=== PATIENT | male | born 1980 | race Caucasian/White ===

== ENCOUNTER 2017-10-16 17:52 | Emergency (ER) | payer BC, MEDICARE, OTHER ==
[~2017-10-16] VITALS: Ht 188 cm; Wt 96.2 kg
[~2017-10-16 17:52] MED LIST: "\\\"BP MED\\\""; "\\\"WATER PILL\\\""; CRUTCH3 USE; HYDACE5 PO; HYDCHL50 PO; IBUP600 PO; METPHE10 PO; MONT10T PO; Micro-K10 MEQ PO; Motrin800 MG PO; NASAL SPRAY; Norco 5-325 Ta1 EACH PO; PROM25 PO; Percocet 10-321 EACH PO
[2017-10-16] MEDS ORDERED: NEBI5 PO (18:04)
[2017-10-16] MEDS ORDERED: MOMENI (18:04)
[2017-10-16 20:33] LABS: BASOPHILS ABSOLUTE AUTO 0.04 K/mm3 (0.00-0.23); BASOPHILS PERCENT AUTO 1 % (0-2); EOSINOPHILS ABSOLUTE AUTO 0.19 K/mm3 (0.00-0.68); EOSINOPHILS PERCENT AUTO 4 % (0-6); Hematocrit 42.4 % (37.0-53.0); Hemoglobin 14.3 g/dL (13.5-17.5); IMMATURE GRAN ABSOLUTE AUTO 0.01 K/mm3 (0.00-0.10); IMMATURE GRAN PERCENT AUTO 0 % (0-1); LYMPHOCYTES ABSOLUTE AUTO 2.43 K/mm3 (0.84-5.20); LYMPHOCYTES PERCENT AUTO 47 % (21-46); MONOCYTES PERCENT AUTO 12 % (4-13); Mean Corpuscular HGB 31.4 pg (26.0-34.0); Mean Corpuscular HGB Conc 33.7 g/dL (31.5-36.5); Mean Corpuscular Volume 93 fL (80-100); Mean Platelet Volume 9.6 fL (9.1-12.4); NEUTROPHILS ABSOLUTE AUTO 1.96 K/mm3 (1.96-9.15); NEUTROPHILS PERCENT AUTO 37 % (41-73); Platelet Count 226 K/mm3 (150-400); RDW Coefficient Variation 11.9 % (11.7-14.2); RDW Standard Deviation 40.7 fL (35.1-46.3); Red Blood Cell Count 4.56 M/mm3 (4.30-5.90); White Blood Cell Count 5.23 K/mm3 (4.00-11.30)
[2017-10-16 20:59] LABS: Alanine Aminotransfer (ALT/SGP 88 U/L (12-78); Albumin/Globulin Ratio 1.1 (0.8-1.8); Alk Phos 90 U/L (50-136); Anion Gap 9 mmol/L (6-16); Aspartate Aminotrans (AST/SGOT 44 U/L (12-37); Blood Urea Nitrogen 18 mg/dL (8-24); Bun/Creatinine Ratio 22.3 (12.0-20.0); CO2, Blood 27 mmol/L (21-32); Calcium, Blood 8.6 mg/dL (8.5-10.1); Chloride, Blood 105 mmol/L (98-108); Creatinine, Blood 0.81 mg/dL (0.60-1.20); Globulin, Blood 3.8 g/dL (2.2-4.0); Glomerular Filtration Rate >60 (60-); Glucose, Blood 85 mg/dL (70-99); Potassium, Blood 3.7 mmol/L (3.5-5.5); Sodium, Blood 141 mmol/L (136-145); Total Protein, Blood 7.8 g/dL (6.4-8.2); Troponin I <0.015 ng/mL (0.000-0.040)
== END 2017-10-16 21:22 | disposition home or self-care (01) ==
LOC: ER 17:52
PROVIDERS: Emergency Medicine
DX: R94.31 Abnormal electrocardiogram [ECG] [EKG] (principal); Z79.899 Other long term (current) drug therapy; J45.909 Unspecified asthma, uncomplicated; I10 Essential (primary) hypertension; F90.9 Attention-deficit hyperactivity disorder, unspecified type
CPT/HCPCS: 36415; 71046; 80053; 84484; 85025; 93005; 93010; 99283

== ENCOUNTER → 2024-05-26 | Outpatient (CLI) | payer BC, OTHER ==
[~2024-05-26] MED LIST changes: +MOMENI; +NEBI5 PO
== END | disposition home or self-care (01) ==
LOC: LAB 17:26 → LAB SHORT 17:26
DX: K21.9 Gastro-esophageal reflux disease without esophagitis (principal)
CPT/HCPCS: 87338

== ENCOUNTER 2025-04-13 14:21 | Emergency (ER) | payer OTHER ==
[~2025-04-13] VITALS: Ht 182.9 cm; Wt 81.7 kg
[2025-04-13 14:51] VITALS: BP 128/83
[2025-04-13] MEDS ORDERED: Bactrim Ds Tab1 EACH PO (14:54)
== END 2025-04-13 15:27 | disposition home or self-care (01) ==
LOC: ER 14:21
DX: S40.812A Abrasion of left upper arm, initial encounter (principal); L01.00 Impetigo, unspecified; J45.909 Unspecified asthma, uncomplicated; I10 Essential (primary) hypertension; Z79.899 Other long term (current) drug therapy; Z79.2 Long term (current) use of antibiotics; X58.XXXA Exposure to other specified factors, initial encounter
CPT/HCPCS: 99282